=== PATIENT | male | born 1995 | race Caucasian/White ===

== ENCOUNTER 2019-05-01 21:31 | Emergency (ER) | payer OTHER ==
[~2019-05-01] VITALS: Ht 193 cm; Wt 70.8 kg
[2019-05-01] MEDS ORDERED: IV RINGERS SOLUTION,LACTATED 1,000 ML IV SCH (21:39)
[2019-05-01 22:00] LABS: HEMATOCRIT 45.5 % (39.0-53.0); HEMOGLOBIN 15.5 g/dL (13.0-17.5); MEAN CORPUSCULAR HEMOGLOBIN 32 pg (25-35); MEAN CORPUSCULAR HGB CONC 34 g/dL (31-37); MEAN CORPUSCULAR VOLUME 93 fL (79-100); PLATELET COUNT 340 x10^3/uL (140-400); RED CELL DISTRIBUTION WIDTH 13.2 % (11.5-14.5); WHITE BLOOD COUNT 9.9 x10^3/uL (4.0-11.0)
[2019-05-01 22:01] LABS: BASO % 1 % (0-3); EOS % 0 % (0-3); LYMPH % 19 % (24-48); MONO % 6 % (0-9); NEUT % 74 % (31-73)
[2019-05-01 22:10] LABS: CALCIUM 9.1 mg/dL (8.5-10.1); CREATININE 1.4 mg/dL (0.7-1.3); GFR 62.8; POTASSIUM 3.9 mmol/L (3.5-5.1)
[2019-05-01 22:22] LABS: ALBUMIN 4.4 g/dL (3.4-5.0); DIRECT BILIRUBIN 0.1 mg/dL (0.0-0.2); MAGNESIUM 2.7 mg/dL (1.8-2.4); TOTAL BILIRUBIN 0.3 mg/dL (0.2-1.0); TOTAL PROTEIN 7.3 g/dL (6.4-8.2)
[2019-05-01 22:35] LABS: BARBITURATES NEG (NEG); BENZODIAZEPINES NEG (NEG); CANNABINOIDS POS (NEG); COCAINE NEG (NEG); METHADONE NEG (NEG); OPIATES NEG (NEG); PHENCYCLIDINE NEG (NEG)
--- NOTE | 2019-05-01 22:40 | RAD ---
CT Head W/O Contrast: History: Stat seizure Comparison: none Axial images were obtained without contrast. The brumfield and white matter appears normal and symmetrical for the patients age. There is no mass effect, extraaxial fluid collections or hydrocephalus. There is no gross bleed. There is no focal loss of brumfield-white matter distinction to suggest acute ischemia, i.e. stroke. Impression: No acute findings. RS Compliance Statement: One or more of the following individualized dose reduction techniques were utilized for this examination: 1. Automated exposure control 2. Adjustment of the mA and/or kV according to patient size 3. Use of iterative reconstruction technique Electronically signed by: Vinayak Castaneda III, MD (05/01/2019 10:37 PM) [facility]
[2019-05-01 22:42] LABS: AMPHETAMINE/METHAMPHETAMINE NEG (NEG)
[2019-05-01 23:08] LABS: BILIRUBIN,URINE NEG (NEG); CLARITY,URINE CLEAR; COLOR,URINE YELLOW; GLUCOSE,URINE NEG (NEG)
[2019-05-01 23:09] LABS: BACTERIA,URINE 0 /HPF (0-FEW); NITRITE,URINE NEG (NEG); RBC,URINE 0 /HPF (0-2); SQUAMOUS EPITHELIAL CELL,UR OCC /LPF; UROBILINOGEN,URINE 0.2 mg/dL (0.2 mg/dL)
[2019-05-01] MEDS ORDERED: CONTRAST GIVEN MC PRN (23:45)
--- NOTE | 2019-05-01 23:48 | PHYS DOC ---
Past History Past Medical History: No Pertinent History, Seizure Past Surgical History: No Surgical History Alcohol Use: Occasionally Drug Use: Marijuana Adult General Chief Complaint Chief Complaint: SEIZURE.. " .. I guess ... I had.....a seizure...."... HPI HPI Patient is a 23 year old male who presents with hx of tonic clonic seizure. Pt. was found in his friend car have any tonic-clonic seizure. Patient did have incontinence of urine. Patient has remote history of similar episode approximately 1 year ago when he passed out and hit a urine all of his head. Patient not on current seizure meds. Patient denies illicit drug use. Patient does smoke. No recent travel. Has been normally healthy. Patient on arrival was somewhat postictal but during ED evaluation he became more alert. Patient was not aware of any symptoms prior to the seizure. Length of seizure is unknown. Was tonic clonic by description of friends. Patient does snore at night. Has had a previous EKG in the EEG in [place] reportedly they were negative. Patient was incontinent of urine with the tonic clonic seizure. Review of Systems Review of Systems Constitutional: Denies fever or chills [] Eyes: Denies change in visual acuity, redness, or eye pain [] HENT: Denies nasal congestion or sore throat [] Respiratory: Denies cough or shortness of breath [] Cardiovascular: No additional information not addressed in HPI [] GI: Denies abdominal pain, nausea, vomiting, bloody stools or diarrhea [] : Denies dysuria or hematuria [] Musculoskeletal: Denies back pain or joint pain [] Integument: Denies rash or skin lesions [] Neurologic: Denies headache, focal weakness or sensory changes . Pt. []complaints of tonic clonic seizure Endocrine: Denies polyuria or polydipsia [] All other systems were reviewed and found to be within normal limits, except as documented in this note. Family History Family History Noncontributory Current Medications Current Medications Current Medications Medications (Trade) Dose Ordered Sig/Philip Start Time Stop Time Status Last Admin Dose Admin Enoxaparin Sodium (Lovenox 80mg Syringe) 70 mg 1X ONCE 05/02/19 00:00 05/02/19 00:01 Info (Do NOT chart on this entry -- for MONITORING) 1 each PRN DAILY PRN 05/01/19 23:45 05/03/19 23:44 Iohexol (Omnipaque 350 Mg/ml) 100 ml 1X ONCE 05/02/19 00:00 05/02/19 00:01 Lactated Ringer's 1,000 ml @ 1,000 mls/hr Q1H 05/01/19 21:39 05/01/19 22:38 DC 05/01/19 21:50 1,000 MLS/HR Lorazepam (Ativan) 1 mg 1X ONCE 05/02/19 00:00 05/02/19 00:01 Allergies Allergies Allergies Coded Allergies Type Severity Reaction Last Updated Verified No Known Drug Allergies 05/01/19 No Physical Exam Physical Exam Constitutional: Well developed, well nourished, no acute distress, post ictal in appearance HENT: Normocephalic, atraumatic, bilateral external ears normal, oropharynx moist, no oral exudates, nose normal. []Scar above the left eye Eyes: PERRLA, EOMI, conjunctiva normal, no discharge. [] Neck: Normal range of motion, no tenderness, supple, no stridor. [] Cardiovascular: Tachycardia Heart rate regular rhythm, no murmur [] Lungs & Thorax: Bilateral breath sounds clear apexes few scattered wheezes . Wheezes more on right upper lung young on auscultation [] Abdomen: Bowel sounds normal, soft, no tenderness, no masses, no pulsatile masses. [] Incontinent of urine. Skin: Warm, dry, no erythema, no rash. [] Back: No tenderness, no CVA tenderness. [] Extremities: No tenderness, no cyanosis, no clubbing, ROM intact, no edema. [] No cording in legs Neurologic: Alert and oriented X 3, normal motor function, normal sensory function, no focal deficits noted. []DTRs +2 patella and brachial. 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 No drift. Ambulatory without problems. Psychologic: Affect anxious, judgement normal, mood normal. [] Current Patient Data Vital Signs Vital Signs Date Time Temp Pulse Resp B/P (MAP) Pulse Ox O2 Delivery O2 Flow Rate FiO2 05/01/19 21:31 97.7 117 12 95 Room Air Lab Results Laboratory Tests Test 05/01/19 21:44 05/01/19 21:59 White Blood Count 9.9 x10^3/uL (4.0-11.0) Red Blood Count 4.90 x10^6/uL (4.30-5.70) Hemoglobin 15.5 g/dL (13.0-17.5) Hematocrit 45.5 % (39.0-53.0) Mean Corpuscular Volume 93 fL (79-100) Mean Corpuscular Hemoglobin 32 pg (25-35) Mean Corpuscular Hemoglobin Concent 34 g/dL (31-37) Red Cell Distribution Width 13.2 % (11.5-14.5) Platelet Count 340 x10^3/uL (140-400) Neutrophils (%) (Auto) 74 % (31-73) H Lymphocytes (%) (Auto) 19 % (24-48) L Monocytes (%) (Auto) 6 % (0-9) Eosinophils (%) (Auto) 0 % (0-3) Basophils (%) (Auto) 1 % (0-3) Prothrombin Time 9.9 SEC (9.4-11.4) Prothrombin Time INR 1.0 (0.9-1.1) Activated Partial Thromboplast Time 24 SEC (23-33) D-Dimer (Sherry) 1.14 mg/L (0.00-0.50) H Sodium Level 140 mmol/L (136-145) Potassium Level 3.9 mmol/L (3.5-5.1) Chloride Level 103 mmol/L (98-107) Carbon Dioxide Level 19 mmol/L (21-32) L Anion Gap 18 (6-14) H Blood Urea Nitrogen 13 mg/dL (8-26) Creatinine 1.4 mg/dL (0.7-1.3) H Estimated GFR (Cockcroft-Gault) 62.8 Glucose Level 82 mg/dL (70-99) Calcium Level 9.1 mg/dL (8.5-10.1) Magnesium Level 2.7 mg/dL (1.8-2.4) H Total Bilirubin 0.3 mg/dL (0.2-1.0) Direct Bilirubin 0.1 mg/dL (0.0-0.2) Aspartate Amino Transferase (AST) 35 U/L (15-37) Alanine Aminotransferase (ALT) 71 U/L (16-63) H Alkaline Phosphatase 101 U/L (46-116) Creatine Kinase 134 U/L (39-308) Troponin I Quantitative < 0.017 ng/mL (0-0.055) QN-Fwz-F-Type Natriuretic Peptide 41 pg/mL (0-124) Total Protein 7.3 g/dL (6.4-8.2) Albumin 4.4 g/dL (3.4-5.0) Lipase 137 U/L (73-393) Ethyl Alcohol Level < 10 mg/dL (0-10) Urine Collection Type Unknown Urine Color Yellow Urine Clarity Clear Urine pH 5.5 Urine Specific [place] 1.020 Urine Protein 30 mg/dl (NEG-TRACE) Urine Glucose (UA) Neg mg/dL (NEG) Urine Ketones (Stick) Neg mg/dL (NEG) Urine Blood Mod (NEG) Urine Nitrite Neg (NEG) Urine Bilirubin Neg (NEG) Urine Urobilinogen Dipstick 0.2 mg/dL (0.2 mg/dL) Urine Leukocyte Esterase Neg (NEG) Urine RBC 0 /HPF (0-2) Urine WBC 1-4 /HPF (0-4) Urine Squamous Epithelial Cells Occ /LPF Urine Bacteria 0 /HPF (0-FEW) Urine Opiates Screen Neg (NEG) Urine Methadone Screen Neg (NEG) Urine Barbiturates Neg (NEG) Urine Phencyclidine Screen Neg (NEG) Urine Amphetamine/Methamphetamine Neg (NEG) Urine Benzodiazepines Screen Neg (NEG) Urine Cocaine Screen Neg (NEG) Urine Cannabinoids Screen Pos (NEG) Urine Ethyl Alcohol Neg (NEG) EKG EKG My interpretation EKG shows a sinus tachycardia 102 bpm. Slight right axis. But no findings acute STEMI of contralateral changes.[] Radiology/Procedures Radiology/Procedures [address] [address] IMAGING REPORT Signed PATIENT: VICKY EM ACCOUNT: [id number] : 1995 LOCATION: ER AGE: 23 SEX: M EXAM STATUS: REG ER ORD. PHYSICIAN: YVETTE CISNEROS MD REASON: Syncope, seizure- elevated d-dimer, cough, congestion PROCEDURE: CT ANGIOGRAPHY CHEST Examination: CT ANGIOGRAPHY CHEST History: Syncope, elevated d-dimer, cough and congestion Comparison/Correlation: None Findings: Axial images of the chest were obtained following IV contrast according to pulmonary arteriography protocol. Maximum intensity projection images were provided. Sagittal and coronal reformatted images were provided. Pulmonary vasculature is normal with no thromboembolic disease although evaluation is limited at the right pulmonary artery due to streak artifact related to contrast within the superior vena cava.. No infiltrate, pleural effusion, or pneumothorax. No suspicious pulmonary nodule or mass thoracic aorta is unremarkable. Moderate quantity of fluid and debris noted within stomach. Bony structures are unremarkable. Impression: No pulmonary arterial thromboembolic disease or infiltrate. PQRS Compliance Statement: One or more of the following individualized dose reduction techniques were utilized for this examination: 1. Automated exposure control 2. Adjustment of the mA and/or kV according to patient size 3. Use of iterative reconstruction technique Electronically signed by: Bon Jack MD (05/02/2019 12:01 AM) [facility] DICTATED AND SIGNED BY: BON JACK MD DATE: 05/02/19 0001 CC: YVETTE CISNEROS MD; PCP,NO ~ [][place] [address] IMAGING REPORT Signed PATIENT: VICKY EM ACCOUNT: [id number] : 1995 LOCATION: ER AGE: 23 SEX: M EXAM STATUS: REG ER ORD. PHYSICIAN: YVETTE CISNEROS MD REASON: New onset seizure PROCEDURE: CT HEAD WO CONTRAST CT Head W/O Contrast: History: Stat seizure Comparison: none Axial images were obtained without contrast. The brumfield and white matter appears normal and symmetrical for the patients age. There is no mass effect, extraaxial fluid collections or hydrocephalus. There is no gross bleed. There is no focal loss of brumfield-white matter distinction to suggest acute ischemia, i.e. stroke. Impression: No acute findings. PQRS Compliance Statement: One or more of the following individualized dose reduction techniques were utilized for this examination: 1. Automated exposure control 2. Adjustment of the mA and/or kV according to patient size 3. Use of iterative reconstruction technique Electronically signed by: Farhad Christianson III, MD (05/01/2019 10:37 PM) [facility] DICTATED AND SIGNED BY: FARHAD CHRISTIANSON III, MD DATE: 05/01/19 496 CC: YVETTE CISNEROS MD; PCP,NO ~ Course & Med Decision Making Course & Med Decision Making Pertinent Labs and Imaging studies reviewed. (See chart for details) Patient to follow seizure precautions. No hazardous work or driving until c leared by primary care or neurology. Will start patient on Dilantin 300 mg a day. Patient follow-up primary care. Patient follow-up with neurology. Patient return if any concerns. Patient encouraged not to smoke or use marijuana products. Impression: 1. Tonic Clonic Seizure 2. Tachycardia 3. Elevated D-dimer 1.14 4. Marijuana and Tobacco Use [] Dragon Disclaimer Dragon Disclaimer This electronic medical record was generated, in whole or in part, using a voice recognition dictation system. Departure Departure: Disposition: HOME/RESIDENCE PRIOR TO ADM Condition: STABLE Referrals: [facility] (PCP) Scripts Phenytoin Sodium Extended (DILANTIN) 100 Mg Capsule 300 MG PO DAILY for seizure for 30 Days, #90 CAP Prov: YVETTE CISNEROS MD 05/02/19 Dragon Disclaimer This chart was dictated in whole or in part using Voice Recognition software in a busy, high-work load, and often noisy Emergency Department environment. It may contain unintended and wholly unrecognized errors or omissions. YVETTE CISNEROS MD May 01, 2019 23:48
[2019-05-02] MEDS ORDERED: IOHEXOL 350 MG/ML 100 ML VIAL. IV ONE
[2019-05-02] MEDS ORDERED: ENOXAPARIN ** NOTE DOSE ** SYRINGE SQ ONE
[2019-05-02] MEDS ORDERED: LORazepam 1 MG TABLET PO ONE
[2019-05-02 00:02] VITALS: BP 136/69
--- NOTE | 2019-05-02 00:04 | RAD ---
Examination: CT ANGIOGRAPHY CHEST History: Syncope, elevated d-dimer, cough and congestion Comparison/Correlation: None Findings: Axial images of the chest were obtained following IV contrast according to pulmonary arteriography protocol. Maximum intensity projection images were provided. Sagittal and coronal reformatted images were provided. Pulmonary vasculature is normal with no thromboembolic disease although evaluation is limited at the right pulmonary artery due to streak artifact related to contrast within the superior vena cava.. No infiltrate, pleural effusion, or pneumothorax. No suspicious pulmonary nodule or mass thoracic aorta is unremarkable. Moderate quantity of fluid and debris noted within stomach. Bony structures are unremarkable. Impression: No pulmonary arterial thromboembolic disease or infiltrate. PQRS Compliance Statement: One or more of the following individualized dose reduction techniques were utilized for this examination: 1. Automated exposure control 2. Adjustment of the mA and/or kV according to patient size 3. Use of iterative reconstruction technique Electronically signed by: Bon Sorto MD (05/02/2019 12:01 AM) [facility]
[2019-05-02] MEDS ORDERED: PHEN100C PO (00:14)
[2019-05-02] MEDS ORDERED: IV RINGERS SOLUTION,LACTATED 1,000 ML IV ONE (00:30)
[2019-05-02] MEDS ORDERED: PHENYTOIN SODIUM EXTENDED 100 MG CAPSULE PO ONE (00:30)
--- NOTE | 2019-05-02 03:37 | RAD ---
Exam: Chest one view INDICATION: New onset seizure TECHNIQUE: Frontal view of the chest Comparisons: None FINDINGS: The cardiomediastinal silhouette and pulmonary vessels are within normal limits. The lung and pleural spaces are clear. IMPRESSION: No acute cardiopulmonary process. Electronically signed by: Radha Aguilar MD (05/02/2019 3:34 AM) [facility]
--- NOTE | 2019-05-02 06:14 | EKG ---
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
== END 2019-05-02 00:35 | disposition home or self-care (01) ==
LOC: ER 21:31
DX: G40.89 Other seizures (principal); R00.0 Tachycardia, unspecified; R79.1 Abnormal coagulation profile; Z72.0 Tobacco use; F12.10 Cannabis abuse, uncomplicated; R32 Unspecified urinary incontinence
CPT/HCPCS: 36415; 70450; 71045; 71275; 80048; 80076; 80307; 81001; 82550; 83690; 83735; 83880; 84443; 84484; 85025; 85379; 85610; 85730; 93005; 96372; 99285; G0480; J1650; J7120; Q9967

== ENCOUNTER → 2019-05-23 | Outpatient (CLI) | payer OTHER ==
[2019-05-02 00:02] VITALS: BP 136/69
[~2019-05-23] MED LIST: PHEN100C PO
--- NOTE | 2019-05-23 13:26 | RAD ---
Exam: VENOUS LOWER EXT BILATERAL Indication: Bilateral leg pain, elevated d-dimer Technique: Color-flow and pulsed wave duplex ultrasound with compression of venous structures of the bilateral lower extremities. Comparison: None Available. Findings: Duplex ultrasound with compression of the deep venous structures of the bilateral lower extremities from the common femoral vein through the popliteal vein is negative for DVT. The posterior tibial and peroneal veins are segmentally visualized and patent where seen. Normal venous waveforms and augmentation are noted throughout. Impression: No evidence for DVT in the bilateral lower extremities. Electronically signed by: Herberth Wyatt MD (05/23/2019 1:23 PM) [facility]
== END | disposition home or self-care (01) ==
LOC: US 12:30
PROVIDERS: ATTEND Registered Nurse
DX: M79.604 Pain in right leg (principal); M79.605 Pain in left leg
CPT/HCPCS: 93970